=== PATIENT | male | born 1955 | race Caucasian/White ===

== ENCOUNTER 2020-01-12 08:55 | Inpatient (IN) | payer MEDICARE, OTHER ==
[~2020-01-12] VITALS: Ht 172 cm; Wt 98.4 kg
[~2020-01-12 08:55] MED LIST: ALLO100T PO; AMLO2.5T4 PO; ASPI-586 PO; CLOP75TA69 PO; NF-BISOP5 PO; SIMV10TA26 PO
[2020-01-12 10:20] VITALS: BP 145/91
[2020-01-12] MEDS ORDERED: ACETAMINOPHEN 325 MG TABLET PO PRN (10:45)
[2020-01-12] MEDS ORDERED: MELATONIN 3 MG TABLET PO PRN (10:45)
[2020-01-12] MEDS ORDERED: ANTACID SUSP 30 ML UDC (MYLANTA) PO PRN (10:45)
[2020-01-12] MEDS ORDERED: NITROGLYCERIN 0.4 MG SL TABS BTL 25'S SL PRN (10:45)
[2020-01-12] MEDS ORDERED: morphine INJ 10 MG/ML 1ML (SYR OR VIAL) IVP PRN (10:45)
[2020-01-12] MEDS ORDERED: polyethylene glycoL POWDER 17 GM (MIRALAX) PACK PO PRN (10:45)
[2020-01-12] MEDS ORDERED: ONDANSETRON 4 MG/2 ML (SDV) Z0FRAN IV PRN (10:45)
[2020-01-12] MEDS ORDERED: FLU QUAD HIGH DOSE 240 MCG/0.7 ML 2020-21 (FLUZONE) IM ONE (11:00)
[2020-01-12] MEDS: NS IV 1000 ML 1,000 ML IV SCH ×2 (11:24→18:16)
[2020-01-12] MEDS: ENOXAPARIN 40 MG/0.4 ML (LOVENOX) SYR SC SCH (11:24)
--- NOTE | 2020-01-12 11:24 | NUR ---
MIR SUAREZ RN IN [facility] PT RECEIVED LOVENOX 01/11.
[2020-01-12 12:00] VITALS: BP 178/106
[2020-01-12 12:45] VITALS: BP 160/79
[2020-01-12] MEDS ORDERED: morphine INJ 4 MG/ML 1 ML (VIAL/SYRINGE) IV PRN (13:00)
[2020-01-12 13:15] VITALS: BP 169/96
[2020-01-12] MEDS ORDERED: TR025C15 OT (13:22)
[2020-01-12] MEDS ORDERED: FLUT16SP22 NSEACH (13:22)
--- NOTE | 2020-01-12 13:24 | NUR ---
SPOKE WITH THE PT AND WENT THRU THE EXT MED HISTORY TO COMPLETE THE MED REC PT DENIES TAKING ANY SCHEDULED/MAINTENANCE MEDS AND JUST STARTED USING TRIAMCINOLONE AND FLONASE RECENTLY FOR EAR DRAINAGE/IRRITATION OTC MEDS: NONE
[2020-01-12] MEDS ORDERED: RT-ALBUTEROL SULF 2.5 MG/3 ML PRE-MIX VIAL INH PRN (14:00)
--- NOTE | 2020-01-12 14:17 | History & Physical-Hospitalist ---
History of Present Illness HPI/Chief Complaint Pt is a 64yoCM with a PMH of CAD s/p 12 stents and active tobacco use who presented to the ER due to chest pain. He states it started last night around 6- 7pm last night at rest and continues now. He did notice some jaw pain yesterday morning though but didn't think much of it until today when his chest pain continued. he denies any shortness of breath. He states the pain is just like his previous episodes when he has needed stents but not as severe in nature. His troponin at OSH was 1.62 and he was transferred here for evaluation. His last cath was 2 years ago and he states following it he was taken off all of his cardiac meds. Source: patient Date Seen 01/12/20 Time Seen by a Provider: 14:41 Attending Physician Talat Whatley MD PCP Danish Lamas DO Referring Physician Date of Admission Jan 12, 2020 at 10:06 Home Medications & Allergies Home Medications Reviewed patient Home Medication Reconciliation performed by pharmacy medication reconciliations lab animal technician and/or nursing. Patients Allergies have been reviewed. Allergies Allergies Coded Allergies No Known Drug Allergies (Unverified08/16/15) Past Yxlyale-Sotxxz-Okmxty Hx Past Med/Social Hx: Reviewed Nursing Past Med/Soc Hx Patient Social History Marrital Status: Smoking Status: Current Everyday Smoker Cigaretts per day: 10 Recent Foreign Travel: No Contact w/other who traveled: No Recent Infectious Disease Expo: No Past Medical History Surgeries: Coronary Stent Cardiac: Coronary Artery Disease, Hypertension Family History Reviewed Nursing Family Hx No Pertinent Family Hx Review of Systems Constitutional: No chills, No fever, No malaise EENTM: other (jaw pain) Respiratory: No cough, No dyspnea on exertion, No short of breath Cardiovascular: see HPI, chest pain Gastrointestinal: no symptoms reported Genitourinary: no symptoms reported Musculoskeletal: no symptoms reported Skin: no symptoms reported Psychiatric/Neurological: No Symptoms Reported Physical Exam Physical Exam Vital Signs Vital Signs - First Documented 01/12/20 01/12/20 10:20 13:15 Pulse 65 Resp 18 B/P (MAP) 145/91 Pulse Ox 97 O2 Delivery Room Air FiO2 21 Capillary Refill : Height, Weight, BMI Height: 5'9.00" Weight: 225lbs. 0.0oz. 102.370530me; 33.39 BMI Method: General Appearance: No Apparent Distress, WD/WN HEENT: PERRL/EOMI, Moist Mucous Membranes; No Scleral Icterus (L), No Scleral Icterus (R) Neck: Normal Inspection, Supple Respiratory: Lungs Clear, No Accessory Muscle Use, No Respiratory Distress Cardiovascular: Regular Rate, Rhythm, No JVD, No Murmur Gastrointestinal: Normal Bowel Sounds, Non Tender, Soft Extremity: Normal Capillary Refill, No Calf Tenderness, No Pedal Edema Neurologic/Psychiatric: Alert, Oriented x3, Normal Mood/Affect Results Results/Procedures Labs Patient resulted labs reviewed. Assessment/Plan Admission Diagnosis NSTEMI Admission Status: Inpatient Order (span 2 midnights) Reason for Inpatient Admission: see below Assessment and Plan NSTEMI Consistent with unstable angina Telemetry Cardiology consulted, appreciate recs Troponin up to 2.6 Given ASA and 300mg Plavix at OSH Echo ordered Nitro/Morphine ASA history of HTN BP mildly elevated, trend DVT ppx: Lovenox Diagnosis/Problems Diagnosis/Problems (1) NSTEMI (non-ST elevated myocardial infarction) Status: Acute (2) CAD (coronary artery disease) Qualifiers: Coronary Disease-Associated Artery/Lesion type: [place] artery [place] vs. transplanted heart: [place] heart Associated angina: without angina Qualified Codes: I25.10 - Atherosclerotic heart disease of [place] coronary artery without angina pectoris (3) Tobacco abuse Status: Acute Clinical Quality Measures DVT/VTE Risk/Contraindication: Risk Factor Score Per Nursin RFS Level Per Nursing on Admit: 4+=Very High TALAT WHATLEY MD Jan 12, 2020 14:17
[2020-01-12] MEDS ORDERED: ENOXAPARIN 40 MG/0.4 ML (LOVENOX) SYR SQ SCH (14:30)
[2020-01-12 17:00] VITALS: BP 119/100
[2020-01-12 20:00] VITALS: BP 105/82
[2020-01-13 00:20] VITALS: BP 162/95
[2020-01-13] MEDS: NS IV 1000 ML 1,000 ML IV SCH ×2 (02:21→08:57)
[2020-01-13 03:43] LABS: MEAN PLATELET VOLUME 10.7 fL (9.0-12.2); WHITE BLOOD COUNT 8.7 10^3/uL (4.3-11.0)
[2020-01-13 04:02] LABS: CHLORIDE 106 MMOL/L (98-107); POTASSIUM 4.2 MMOL/L (3.6-5.0); SODIUM 137 MMOL/L (135-145)
[2020-01-13 04:03] LABS: CALCIUM 9.3 MG/DL (8.5-10.1)
[2020-01-13 04:04] LABS: GLUCOSE 107 MG/DL (70-105); TRIGLYCERIDES 173 MG/DL (<150); VLDL CHOLESTEROL 35 MG/DL (5-40)
[2020-01-13 04:05] LABS: CARBON DIOXIDE 22 MMOL/L (21-32)
[2020-01-13 04:07] VITALS: BP 148/88
[2020-01-13 04:08] LABS: GFR ESTIMATED > 60
[2020-01-13 04:09] LABS: BUN/CREATININE RATIO 15; CHOLESTEROL 163 MG/DL (< 200)
[2020-01-13 04:10] LABS: HDL CHOLESTEROL 27 MG/DL (40-60)
[2020-01-13] MEDS ORDERED: HEParin (CATH LAB) 1,000 ML IV ONE (07:08)
[2020-01-13] MEDS ORDERED: LIDOCAINE 1% INJ 20 ML 20 ML VIAL ONE (07:08)
[2020-01-13] MEDS ORDERED: fentaNYL INJECTION 100 MCG/2 ML AMP ONE (07:14)
[2020-01-13] MEDS ORDERED: MIDAZOLAM 5 MG/5 ML (VERSED) VIAL ONE (07:14)
[2020-01-13] MEDS ORDERED: NS IV 1000 ML 1,000 ML ONE (08:02)
[2020-01-13] MEDS ORDERED: VERAPAMIL 5 MG/2 ML (CALAN) VIAL IV ONE (08:13)
[2020-01-13] MEDS ORDERED: NITRO DRIP 25000 MCG/D5W 250 ML IV ONE (08:13)
[2020-01-13] MEDS ORDERED: HEParin 1000 UNIT/ML (10ML VIAL) FOR BOLUS ONE (08:13)
--- NOTE | 2020-01-13 08:27 | Consultation-Cardiology ---
HPI-Cardiology Cardiology Consultation: Date of Consultation 01/13/20 Date of Admission Attending Physician Saige Whatley MD Admitting Physician Danish Lamas DO Consulting Physician Maria Esther MENDOAZ MD HPI: Time Seen by a Provider: 07:00 GKW-Cuhngx-Zbkmeq Hx Patient Social History Marrital Status: Smoking Status: Current Everyday Smoker Cigaretts per day: 10 Recent Foreign Travel: No Recent Infectious Disease Expo: No Past Medical History PMH As described under Assessment. Allergies and Home Medications Allergies Coded Allergies: No Known Drug Allergies (Unverified , 08/16/15) Home Medications Fluticasone Propionate 16 Gm [place].susp, 2 SPRAYS NSEACH DAILY PRN for CONGESTION, (Reported) Triamcinolone Acet 15 Gm Cr, 1 APPLIC OT BID PRN for SKIN IRRITATION, (Reported) Physical Exam-Cardiology Physical Exam Vital Signs/I&O 01/12/20 01/13/20 01/13/20 01/13/20 21:00 00:00 00:20 01:00 Pulse 74 69 Resp 18 B/P (MAP) 162/95 (117) Pulse Ox 94 O2 Delivery Room Air Room Air Room Air 01/13/20 01/13/20 04:00 04:07 Temp 36.6 Pulse 69 Resp 16 B/P (MAP) 148/88 (108) Pulse Ox 93 O2 Delivery Room Air Room Air 01/13/20 00:00 Intake Total 400 ml Balance 400 ml Capillary Refill : NONE Data Review Labs Laboratory Tests 01/12/20 11:15: Troponin I 2.687*H 01/12/20 18:04: Troponin I 2.421*H 01/13/20 03:28: White Blood Count 8.7, Red Blood Count 4.49, Hemoglobin 15.0, Hematocrit 43, Mean Corpuscular Volume 96, Mean Corpuscular Hemoglobin 33, Mean Corpuscular Hemoglobin Concent 35, Red Cell Distribution Width 12.2, Platelet Count 96L, Mean Platelet Volume 10.7, Sodium Level 137, Potassium Level 4.2, Chloride Level 106, Carbon Dioxide Level 22, Anion Gap 9, Blood Urea Nitrogen 12, Creatinine 0.80, Estimat Glomerular Filtration Rate > 60, BUN/Creatinine Ratio 15, Glucose Level 107H, Calcium Level 9.3, Triglycerides Level 173H, Cholesterol Level 163, LDL Cholesterol Direct 116, VLDL Cholesterol 35, HDL Cholesterol 27L A/P-Cardiology Plan Thank you for your consultation. Please call me if you have any questions. Alicia Mendoza MD, FACP, FACC, FSCAI, FHRS, CCDS Interventional Cardiology Cardiac Electrophysiology Vascular Medicine and Endovascular Interventions Clinical Quality Measures DVT/VTE Risk/Contraindication: Risk Factor Score Per Nursin RFS Level Per Nursing on Admit: 4+=Very High Maria Esther MENDOZA MD Jan 13, 2020 08:27
[2020-01-13] MEDS ORDERED: ASPIRIN 325 MG (5 GR) TABLET ONE (08:57)
[2020-01-13] MEDS ORDERED: CLOPIDOGREL 300 MG (PLAVIX) TABLET PO ONE (08:57)
[2020-01-13] MEDS ORDERED: ASPIRIN 325 MG (5 GR) TABLET PO SCH (09:00)
--- NOTE | 2020-01-13 09:10 | Cardiac Procedure Note-CS/ASA ---
Pre-Procedure Note Pre-Op Procedure Note H&P Reviewed The H&P was reviewed, patient examined and no changes noted. Date H&P Reviewed: Jan 13, 2020 Time H&P Reviewed: 07:00 Conscious Sedation Pre-Proced Time 07:00 ASA Score 3 For ASA 3 and 4: Consider anesthesia and medical clearance. Also, for patients with a history of failed moderate sedation consider anesthesia. Airway Lungs Heart ASA score ASA 1: a normal healthy patient ASA 2: a patient with a mild systemic disease (mid diabetes, controlled hypertension, obesity ASA 3: a patient with a severe systemic disease that limits activity (angina, COPD, prior Myocardial infarction) ASA 4: a patient with an incapacitating disease that is a constant threat to life (CHF, renal failure) ASA 5: a moribund patient not expected to survive 24 hrs. (ruptured aneurysm) ASA 6: a declared brain- patient whose organs are being harvested. For emergent operations, add the letter E after the classification Mallampati Classification Grade 1 Sedation Plan Analgesia, Amnesia, Plan communicated to team members, Discussed options with patient/fam, Discussed risks with patient/fam The patient is an appropriate candidate to undergo the planned procedure, sedation, and anesthesia. The patient immediately re-assessed prior to indication. Maria Esther KIM MD Jan 13, 2020 09:10
--- NOTE | 2020-01-13 09:10 | Coronary Angiography Report ---
Coronary Angiography Report DATE OF PROCEDURE: 01/13/20 INDICATION: PREOPERATIVE DIAGNOSIS: POSTOPERATIVE DIAGNOSIS: HISTORY: Therefore, the patient was scheduled for coronary angiography. PROCEDURES PERFORMED: 1.Coronary angiography. 2.Left heart catheterization. COMPLICATIONS: None. SPECIMENS: None. ESTIMATED BLOOD LOSS: 10 mL ANESTHESIA: Conscious sedation ANTICOAGULATION: IV heparin CONTRAST: FLUOROSCOPY: FLOUROSCOPY DOSE: PROCEDURE DETAILS: The patient is a 64 male and was brought to the sanitation laborer after informed consent was taken. All the risks and complications were explained in detail; this included the risk of bleeding, vascular damage, stroke, [place] and even . The patient was draped and prepped in the usual sterile fashion. Access was gained in the right radial artery with a 6 [place] sheath. Coronary angiography and left heart catheterization was performed with the [place] catheter. FINDINGS: 1.Left main: 2.LAD: 3.Left circumflex artery: 4.RCA: 5.Left heart catheterization: CONCLUSIONS: Alicia Mendoza MD, FACP, FACC, [facility] Interventional Cardiology Maria Esther MENDOZA MD Jan 13, 2020 09:10
[2020-01-13] MEDS ORDERED: NS IV 1000 ML 1,000 ML IV SCH (09:11)
[2020-01-13] MEDS ORDERED: PATIENT MAY USE OWN MEDS, ALL PO SCH (09:15)
--- NOTE | 2020-01-13 10:00 | Discharge Summary ---
Diagnosis/Chief Complaint Date of Admission Jan 12, 2020 at 10:06 Date of Discharge Admission Diagnosis NSTEMI Primary Care BlaiseDanish mari DO Discharge Diagnosis (1) NSTEMI (non-ST elevated myocardial infarction) Status: Acute (2) CAD (coronary artery disease) (3) Tobacco abuse Status: Acute Discharge Summary Discharge Physical Exam Allergies: Coded Allergies: No Known Drug Allergies (Unverified , 08/16/15) Vitals & I&Os Vital Signs Date Time Temp Pulse Resp B/P (MAP) Pulse Ox O2 Delivery O2 Flow Rate FiO2 01/13/20 14:26 36.9 16 Room Air 01/13/20 11:50 70 93 01/12/20 13:15 21 General Appearance: No Apparent Distress, WD/WN Respiratory: Lungs Clear, No Respiratory Distress Cardiovascular: Regular Rate, Rhythm, No Murmur Neurologic/Psychiatric: Alert, Oriented x3 Hospital Course Pt was admitted from OSH due to elevated troponin. He had developed chest pain at rest and had a troponin of 1.6 at OSH. He was transferred here for cardiology evaluation. His troponin trended up and he was taken to clinical laboratory aide which revealed small vessel disease but no interventions were needed. He was started on DAPT and statin and was discharged home in stable condition to follow up with his primary street light wirer Dr Acevedo. Labs (last 24 hrs) Laboratory Tests 01/13/20 03:28: White Blood Count 8.7, Red Blood Count 4.49, Hemoglobin 15.0, Hematocrit 43, Mean Corpuscular Volume 96, Mean Corpuscular Hemoglobin 33, Mean Corpuscular Hemoglobin Concent 35, Red Cell Distribution Width 12.2, Platelet Count 96L, Mean Platelet Volume 10.7, Sodium Level 137, Potassium Level 4.2, Chloride Level 106, Carbon Dioxide Level 22, Anion Gap 9, Blood Urea Nitrogen 12, Creatinine 0.80, Estimat Glomerular Filtration Rate > 60, BUN/Creatinine Ratio 15, Glucose Level 107H, Calcium Level 9.3, Triglycerides Level 173H, Cholesterol Level 163, LDL Cholesterol Direct 116, VLDL Cholesterol 35, HDL Cholesterol 27L Patient resulted labs reviewed. Pending Labs Discussion & Recommendations Discharge Planning: >30 minutes discharge planning Discharge Home Medications: Active Scripts Active Atorvastatin Calcium 40 Mg Tablet 40 Mg PO DAILY Clopidogrel (Clopidogrel Bisulfate) 75 Mg Tablet 75 Mg PO DAILY Aspirin EC (Aspirin) 81 Mg Tablet. 81 Mg PO DAILY Reported Fluticasone Propionate 16 Gm [place].susp 2 Sprays NSEACH DAILY PRN Triamcinolone Acetonide 0.025% (Triamcinolone Acet) 15 Gm Cr 1 Applic OT BID PRN Instructions to patient/family Please see electronic discharge instructions given to patient. Clinical Quality Measures DVT/VTE Risk/Contraindication: Risk Factor Score Per Nursin RFS Level Per Nursing on Admit: 4+=Very High Problem Qualifiers (1) CAD (coronary artery disease): Coronary Disease-Associated Artery/Lesion type: [place] artery [place] vs. transplanted heart: [place] heart Associated angina: without angina Qualified Codes: I25.10 - Atherosclerotic heart disease of [place] coronary artery without angina pectoris TALAT FLANAGAN MD Jan 13, 2020 10:00
[2020-01-13] MEDS ORDERED: ASPI-1238 PO (10:01)
--- NOTE | 2020-01-13 10:03 | Discharge Inst-Simple/Standard ---
Discharge Inst-Standard Patient Instructions/Follow Up Plan of Care/Instructions/FU: Please continue to take your medications as written. Please follow up with your primary care doctor to follow up this hospital stay and with your primary cardiology early next week. Activity as Tolerated: Yes Discharge Diet: Cardiac Diet Return to The Hospital For: Chest pain, shortness of breath, fever, swelling or bleeding at your cath site, if you feel you are getting worse. Planned Outpatient Orders/Ref. Pneu Vac Indicated: Yes TALAT FLANAGAN MD Jan 13, 2020 10:03
[2020-01-13] MEDS: ENOXAPARIN 40 MG/0.4 ML (LOVENOX) SYR SC SCH (11:29)
[2020-01-13 11:50] VITALS: BP 159/87
[2020-01-13] MEDS ORDERED: CLOP75TA28 PO (11:55)
[2020-01-13] MEDS ORDERED: ATOR40TA70 PO (11:57)
[2020-01-14] MEDS ORDERED: ASPIRIN E.C. 81 MG (ECOTRIN) TAB PO SCH (09:00)
[2020-01-14] MEDS ORDERED: CLOPIDOGREL 75 MG (PLAVIX) TABLET PO SCH (09:00)
== END 2020-01-13 14:00 | disposition home or self-care (01) | DRG 282 ==
LOC: ICU 10:06 → CSD 10:41
PROVIDERS: ADMIT Family Medicine; ATTEND Family Medicine
PROC: 4A023N7 Measurement of Cardiac Sampling and Pressure, Left Heart, Percutaneous Approach (ICD-10-PCS; principal; 2020-01-13)
PROC: B2111ZZ Fluoroscopy of Multiple Coronary Arteries using Low Osmolar Contrast (ICD-10-PCS; 2020-01-13)
DX: I21.4 Non-ST elevation (NSTEMI) myocardial infarction (principal); I10 Essential (primary) hypertension; I25.10 Atherosclerotic heart disease of native coronary artery without angina pectoris; Z95.5 Presence of coronary angioplasty implant and graft; F17.210 Nicotine dependence, cigarettes, uncomplicated
CPT/HCPCS: 36415; 80048; 80061; 84484; 85027; 90662; 93005; 93306; 93458; 94760